=== PATIENT | female | born 1965 | race American Indian/Alaskan Native ===

== ENCOUNTER 2016-11-30 21:51 | Emergency (ER) | payer OTHER ==
[2016-11-30 23:02] VITALS: BMI 38.7
[2016-11-30 23:07] VITALS: BP 165/86; PULSE 77; RESP 18; TEMP 97.9; O2SAT 100
[2016-11-30] MEDS ORDERED: Amoxicillin-Clav 875-125 mg Tab PO STA (23:19)
--- NOTE | 2016-11-30 23:21 | ED PDOC ---
Arrival/HPI - General Historian: Patient - General Time Seen by Provider: 11/30/16 22:07 - History of Present Illness Narrative History of Present Illness (Text): 11/30/16 23:00 This 51 yo female presents to this ED c/o left arm insect bites x 1 days. Patient the insect bite on her forearm is warmth, and swollen. She is concern for cellulitis. (Omari Christensen) Past Medical History - Provider Review Nursing Documentation Reviewed: Yes Allergies/Home Meds Allergies/Adverse Reactions: Allergies No Known Allergies Allergy (Verified 11/30/16 23:01) Medical Decision Making Re-evaluation Time: 23:20 Reassessment Condition: Re-examined, Improved ED Course and Treatment: 11/30/16 23:20 Re-evaluation. Patient feels better. Discussed results and plan with patient who expresses understanding. All questions answered and there is agreement with the plan to discharge home with instructions. Patient stable for discharge. Return if symptoms persist or worsen. (Omari Christensen) 12/01/16 00:24 I was available for consultation during PA evaluation. The chart was reviewed by me, and I agree with disposition. The documented history was done by the physician orthotic finish grinding technician. The documented procedures were done by the physician orthotic finish grinding technician. (Leon Gillespie) - Medication Orders Current Medication Orders: Discontinued Medications Amoxicillin/Clavulanate Potassium (Augmentin 875 Mg-125 Mg Tab) 1 tab PO STAT STA PRN Reason: Protocol Stop: 11/30/16 23:20 Last Admin: 11/30/16 23:40 Dose: 1 tab Disposition/Present on Arrival - Present on Arrival Any Indicators Present on Arrival: No History of DVT/PE: No History of Uncontrolled Diabetes: No Urinary Catheter: No History of Decub. Ulcer: No - Disposition Have Diagnosis and Disposition been Completed?: Yes Disposition Time: 23:20 Patient Plan: Discharge - Disposition Diagnosis: Cellulitis, Insect bite Disposition: HOME/ ROUTINE Condition: GOOD Discharge Instructions (ExitCare): Cellulitis (ED) Additional Instructions: Call private doctor for follow up visit in 1-2 days. take medication as instructed. Do not apply cream on face. Return to emergency if symptoms worsen. Prescriptions: Amoxicillin/Clavulanate [Augmentin 875 MG-125 MG] 1 tab PO BID #14 tab Hydrocortisone [Hydrocortisone 2.5% Cream] 1 applic TOP BID PRN #1 tube PRN Reason: Itching / Pruritus Forms: [facility] (Indonesian)
== END 2016-11-30 23:41 | disposition home or self-care (01) ==
LOC: ED 21:51
DX: S50.862A Insect bite (nonvenomous) of left forearm, initial encounter (principal); L03.114 Cellulitis of left upper limb; W57.XXXA Bitten or stung by nonvenomous insect and other nonvenomous arthropods, initial encounter